=== PATIENT | male | born 1970 | race Caucasian/White ===

== ENCOUNTER → 2023-01-16 | Outpatient (CLI) | payer OTHER, SELFPAY ==
[2023-01-16 16:47] LABS: Absolute Lymphocyte Count 2.77 X10^3/uL (0.83-4.51); Absolute Neutrophil Count 1.7 X10^3/uL (2.0-7.7); Basophil# 0.09 X10^3/uL; Basophil% 1.8 % (0-1); Eosinophils% 3.9 % (0-5); Hematocrit 40.6 % (40-54); Hemoglobin 13.1 g/dL (13.0-16.5); Lymphocyte # 2.77 X10^3/ul (0.83-4.51); Lymphocyte % 54.1 % (19-41); Mean Corp Hgb Conc 32.3 g/dL (32-36); Mean Platelet Vol. 11.1 fl (6.2-12.0); Monocyte# 0.39 X10^3/uL; Monocyte% 7.6 % (0-10); NRBC Flagged by Analyzer 0 % (0-5); Neutrophil # 1.66 X10^3/uL (2.7-7.7); Neutrophil % 32.4 % (47-70); Platelet Count 378 K/mm3 (150-450); RBC Distribution Width CV 14.3 % (11.6-14.6); RBC Distribution Width SD 46.9 fl (35.1-43.9); Red Blood Count 4.51 M/mm3 (4.6-6.2); White Blood Count 5.1 K/mm3 (4.4-11.0)
[2023-01-16 17:10] LABS: ALB/GLOB Ratio 1.2 RATIO (0.9-2.4); AST(SGOT) 16 U/L (15-37); Alanine Aminotransfer ALT/SGPT 25 U/L (16-61); Albumin, Serum 3.9 g/dL (3.2-5.0); Alkaline Phosphatase 81 U/L (45-117); Anion Gap 5 (5-15); BUN 14 mg/dL (7-18); BUN/Creat Ratio 17.4 RATIO (10-20); Chloride 108 mmol/L (98-107); Cholesterol 160 mg/dL (200); EST Glomerular Filtration Rate 107 mL/min (>60); Est Glom Filt Rate - Afr Amer 130 mL/min (>60); Globulin 3.2 g/dL (2.2-4.2); Glucose 107 mg/dL (74-106); High Density Lipoprotein 70 mg/dL; Potassium 4.3 mmol/L (3.5-5.1); Protein, Total 7.1 g/dL (6.4-8.2); Sodium Level 141 mmol/L (136-145); Thyroid Stim Hormone (TSH) 1.18 uIU/mL (0.358-3.74); Triglycerides 137 mg/dL; Very Low Density Lipoprotein 27 mg/dL (5-40)
[2023-01-16 17:18] LABS: Microalbumin,Random Urine < 5.0 mg/L (NO RANGE EST.)
== END | disposition home or self-care (01) ==
PROVIDERS: PCP Nurse Practitioner Family; Referring Provider Nurse Practitioner Family; Visit Provider Nurse Practitioner Family
DX: E10.9 Type 1 diabetes mellitus without complications (principal); F32.A Depression, unspecified; E78.00 Pure hypercholesterolemia, unspecified; Z12.5 Encounter for screening for malignant neoplasm of prostate
CPT/HCPCS: 36415; 80053; 80061; 82043; 82570; 84153; 84443; 85025; G0103

== ENCOUNTER → 2023-05-30 | Outpatient (CLI) | payer OTHER, SELFPAY ==
[2023-05-30 16:53] LABS: Absolute Lymphocyte Count 2.02 X10^3/uL (0.83-4.51); Absolute Neutrophil Count 2.5 X10^3/uL (2.0-7.7); Basophil# 0.09 X10^3/uL; Basophil% 1.8 % (0-1); Eosinophil# 0.12 X10^3/uL; Eosinophils% 2.3 % (0-5); Hematocrit 38.9 % (40-54); Hemoglobin 12.5 g/dL (13.0-16.5); Lymphocyte # 2.02 X10^3/ul (0.83-4.51); Lymphocyte % 39.3 % (19-41); Mean Corp Hgb Conc 32.1 g/dL (32-36); Mean Corpuscular Hgb 29.1 pg (27.0-32.0); Mean Corpuscular Volume 90.5 fL (80-94); Mean Platelet Vol. 11.3 fl (6.2-12.0); Monocyte% 7.8 % (0-10); NRBC Flagged by Analyzer 0 % (0-5); Neutrophil # 2.49 X10^3/uL (2.7-7.7); Neutrophil % 48.4 % (47-70); Platelet Count 331 K/mm3 (150-450); RBC Distribution Width CV 14.3 % (11.6-14.6); RBC Distribution Width SD 47.8 fl (35.1-43.9); White Blood Count 5.1 K/mm3 (4.4-11.0)
[2023-05-30 17:15] LABS: Erythrocyte Sedimentation Rate 33 mm/hr (0-20)
[2023-05-30 17:52] LABS: Anion Gap 9 (5-15); BUN 21 mg/dL (7-18); Calcium,Total 8.6 mg/dL (8.5-10.1); Chloride 97 mmol/L (98-107); Creatinine, Serum 1.05 mg/dL (0.70-1.30); EST Glomerular Filtration Rate 79 mL/min (>60); Est Glom Filt Rate - Afr Amer 95 mL/min (>60); Glucose 584 mg/dL (74-106); Potassium 5.3 mmol/L (3.5-5.1); Sodium Level 129 mmol/L (136-145)
== END | disposition home or self-care (01) ==
LOC: BIMLAB 16:05
PROVIDERS: PCP Internal Medicine
DX: R51.9 Headache, unspecified (principal)
CPT/HCPCS: 36415; 80048; 85025; 85652

== ENCOUNTER → 2023-06-12 | Outpatient (CLI) | payer OTHER, SELFPAY ==
--- NOTE | 2023-06-12 16:15 | MRI_ITS ---
STUDY: MRI BRAIN WITH AND WITHOUT CONTRAST REASON FOR EXAM: Male, 53 years old. complex migraine THEN LOSS OF LEG MOVEMENT TECHNIQUE: Standardized multiplanar fat and water weighted pulse sequences were obtained. IV 15 cc clariscan was administered for the contrast portion of the examination. COMPARISON: None. FINDINGS: Normal size of the ventricles and extra-axial spaces for the patient''s age. Normal white matter tracts of the supratentorial brain. Normal bilateral basal ganglia. Normal thalami. There is no extra-axial fluid accumulation. Normal flow voids within the major intracranial circulation suggesting patency by spin echo criteria. Normal venous enhancement. There is no enhancing intra-axial or extra-axial abnormality. Normal sella turcica, pituitary gland, infundibular stalk, optic chiasm and hypothalamus. Normal tectal plate and pineal gland. Normal midbrain, rauhl and medulla. Normal cerebellum. Normal basal cisterns. Normal bilateral temporal bones. Normal bilateral internal auditory canals. No demonstrated orbital abnormality, within the constraints of a routine brain study. Mucosal thickening of maxillary sinuses bilaterally.. Normal calvarium and skull base. Normal visualized soft tissue structures. Normal visualized upper cervical spine. MRI/Brain W/WO Contrast IMPRESSION: Normal unenhanced and enhanced MRI of the brain. Bilateral maxillary sinus disease likely chronic Electronically Signed: Jorden Daniels MD at 20:38 EDT ,
--- NOTE | 2023-06-12 16:25 | RAD_ITS ---
EXAM: XR LUMBOSACRAL SPINE, 2 OR 3 VIEWS CLINICAL INDICATION: neuropathy, back pain TECHNIQUE: 3 views. COMPARISON: No relevant prior studies available. FINDINGS: VERTEBRAE: The usual lordotic curvature is well-maintained. There is minimal dextroscoliosis centered at L1-2 on the frontal view, this may be positional. Preserved vertebral body height. No fracture. No spondylolisthesis. No significant facet arthropathy. SACRUM/COCCYX: There are surgical clips projecting over the right lower lumbar spine and lumbosacral region. DISC SPACES: Mild disc space narrowing at L4-5 and L5-S1 on the left. GASTROINTESTINAL TRACT: Unremarkable as visualized. Included bowel gas pattern is non-obstructive. RAD/Lumbar Spine 2 or 3 Views IMPRESSION: Minimal scoliosis versus positioning. Minimal disc space narrowing. Electronically Signed: Brenda Quiros MD at 6:23 EDT ,
--- NOTE | 2023-06-12 16:25 | RAD_ITS ---
STUDY: X-RAY - ORBITS REASON FOR EXAM: Male, 53 years old. HX METAL TO EYES, PRE MRI TECHNIQUE: view(s) of the orbits were obtained. COMPARISON: None. FINDINGS: Normal bilateral orbits without a metallic orbital foreign body. Normal visualized facial bones. Normal paranasal sinuses. The soft tissue structures are unremarkable. RAD/Orbits for Foreign Body IMPRESSION: No demonstrated metallic orbital foreign body. The patient is cleared for an MRI examination. Electronically Signed: Jorden Daniels MD at 17:15 EDT ,
== END | disposition home or self-care (01) ==
LOC: MRI 16:06
PROVIDERS: PCP Internal Medicine; Referring Provider Internal Medicine; Visit Provider Internal Medicine
DX: R51.9 Headache, unspecified (principal); M79.2 Neuralgia and neuritis, unspecified; M54.50 Low back pain, unspecified; G89.29 Other chronic pain; J32.0 Chronic maxillary sinusitis
CPT/HCPCS: 70030; 70553; 72100; A9575

== ENCOUNTER 2023-06-19 09:00 | Outpatient (RCR) | payer OTHER, SELFPAY ==
--- NOTE | 2023-06-05 10:57 | HP.PTEVAL_ITS ---
Patient's Visit Information Visit Information Visit Information: CIARRA KENNEDY is a 53 year old M referred to Physical Therapy by Dr. Chio Dempsey MD with a diagnosis of Falls. Date of Evaluation: 06/04/23 Physical Therapist: Amy Perez DPT Visit Plan Frequency: 2x /Week Duration: 4 Weeks Plan: Aquatics- focus on LE and core strength/stabilization- proprioception *Need to get in water with patient for safety purposes Subjective Subjective: Patient comes with his today- type I diabetic- cane since March- on DM- polyneuropathy- has no feeling in his feet- cramps and shooting pains in his feet. Not sure PT can help but see if there is anything that we can do to see if we can help with the falling. He has fibro and narcolepsy and is a mess but they need to see if they can strengthen him- he has lost more weight over the last 2 years. Just started with endo A1C about 14 for a long time- and is now running 8.9-10. The pain is constant but he can deal with it- its the shooting pain that really bother him. The shooting pains are when he steps down wrong they come all the way up his legs- Worst: 10/10. The toes spasm and they can last up to 20 min- they want him to go to pain mgmt for methadone but they don't want to go that route- he is currently on the top dose of Neurontin. He staggers 15-20x an hours- he can fall up to 5-6x a day. If he stands up he doesn't have something to hold on to he will go down. He uses a cane 100% of the time. He does not want to use a walker. He can dress himself- he can bathe himself if he uses the shower chair- he can't sit for more than [address] They have no plans to do any sort of EMG testing due to his 100% loss. He does have feel pressure on the left heel with compression. They are planning to do an MRI for possible CVA- hemiplegic migraine- essential tremor- ER next time it happens- has had about 4 episodes since end of March- with fire works with sound/light. 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 Sleep: does not sleep well. He has not seen neurology or had an back x-rays or MRI. He reports that he feels better in the mornings-and when he sits down- when he is up and moving he is miserable and the pain is awful and he is more numb and tingling. PMHx/Meds: no changes since in chart. Objective Objective: Posture: FH, RS- can correct with verbal cues but does not maintain Gait: severely antalgic- uses a straight cane- he has a wide base of support and a slow johnny HR/TR: unable in sitting- but is able in sitting SLS: weight shift only Strength: Core: poor Left: hip flexion: 3+/5, Extn: 4/5 Abd: 4/5, Add: 4/5, IR/ER: 3+/5, Knee: Ext: 3+/5. Flex: 3+/5, Ankle: 4-/5 Right: hip flexion: 2/5, Extn: 2/5 Abd: 4/5, Add: 4/5, IR/ER: 3+/5, Knee: Ext: 2/5. Flex: 2/5, Ankle: 2/5 Balance/Special Test Scores Functional Gait Assessment Score: 2 % Disability: 93.3400 Lower Extremity Functional Score: 0 Goals Goal 1:: Patient will be I with HEP and progression Goal Time Frame: 4-6 Weeks Goal 2:: Patient will ambulate >300 feet with a normalized gait pattern and LRD Goal Time Frame: 4-6 Weeks Goal 3:: Patient will report no falls for 1 week Goal Time Frame: 4-6 Weeks Goal 4:: Patient will report 80% improvement Goal Time Frame: 4-6 Weeks Rehabilitation Potential Physical Therapy Diagnosis: Patient presents with hypomobility- he has decreased ROM, LE and core strength/stabilization, flex, proprioception and muscular endurance leading to poor posture, gait abnormality and decreased ability to perform ADL's safely. Rehabilitation Potential: Fair Anticipated Interventions Patient/Client Instruction: Educate patient on: Benefits of Fitness Program Therapeutic Exercise to Include: Strength training, Endurance training, Balance training, Coordination, Agility training, Body mechanics, Postural training, Flexibilty training, Gait and locomotor training, Neuromotor development, In an aquatic setting, Passive ROM, Active ROM, Dynamic Lumbar Stabilization and Scapular Strength/Stabilization For the Purpose of:: To improve muscle performance and motor function Text: Thank you for the opportunity to evaluate your patient. For Medicare and Medicare HMO plans, please review the plan of care and approve it. It will need to be FAXED BACK to us at [phone] for Medicare purposes. For Medicare only, by signing this I certify the plan of care. Please let me know if there are questions or concerns regarding this plan of care. Physician Signature: _Date:
--- NOTE | 2023-10-25 08:30 | HP.PT.NRP ---
Patient Information Patient Information: CIARRA KENNEDY was seen in my office for initial evaluation on 06/04/23. The following Plan of Care was established for this patient: POC Established Initial Frequency: 2x /Week Initial Duration: 4 Weeks Anticipated Interventions Patient/Client Instruction: Educate patient on: Benefits of Fitness Program Therapeutic Exercise to Include: Strength training, Endurance training, Balance training, Coordination, Agility training, Body mechanics, Postural training, Flexibilty training, Gait and locomotor training, Neuromotor development, In an aquatic setting, Passive ROM, Active ROM, Dynamic Lumbar Stabilization and Scapular Strength/Stabilization For the Purpose of:: To improve muscle performance and motor function Last Seen Last Seen: This patient was last seen in our office . Pertinent comments regarding their Physical therapy will appear below: Patient has not attended PT in over 8 weeks- appropriate to continue home exercise program- discharge from PT At this point I will be discontinuing this patient from physical therapy. I would be happy to see this patient again in the future if found appropriate by the physician. Thank you! Amy Perez, NEREIDAT Balance/Gait/Functional tests Balance/Special Test Scores Functional Gait Assessment Score: 2 % Disability: 93.3400 Lower Extremity Functional Score: 0
== END 2023-06-19 19:00 | disposition home or self-care (01) ==
LOC: PT 09:00
PROVIDERS: PCP Nurse Practitioner Family; Referring Provider Internal Medicine; Visit Provider Internal Medicine
DX: E10.42 Type 1 diabetes mellitus with diabetic polyneuropathy (principal); R29.6 Repeated falls
CPT/HCPCS: 97113; 97162

== ENCOUNTER → 2023-07-06 | Outpatient (CLI) | payer OTHER, SELFPAY ==
[2023-07-06 16:51] LABS: Erythrocyte Sedimentation Rate 26 mm/hr (0-20)
[2023-07-06 16:54] LABS: Prothrombin Time (Protime)PT. 12.7 SECONDS (11.7-14.9)
[2023-07-06 17:02] LABS: Lactic Acid 0.9 mmol/L (0.4-1.9)
[2023-07-06 17:07] LABS: Vitamin B12 472 pg/mL (211-911); Vitamin D,25 Hydroxy 34.5 ng/mL
[2023-07-06 17:19] LABS: ALB/GLOB Ratio 1.1 RATIO (0.9-2.4); AST(SGOT) 15 U/L (15-37); Alanine Aminotransfer ALT/SGPT 16 U/L (16-61); Albumin, Serum 3.7 g/dL (3.2-5.0); Alkaline Phosphatase 116 U/L (45-117); Amylase 51 U/L (25-115); Anion Gap 5 (5-15); BUN 13 mg/dL (7-18); BUN/Creat Ratio 16.2 RATIO (10-20); CPK Total, Creatine Kinase 177 U/L (39-308); CRP < 2.90 mg/L (0.0-3.0); Calcium,Total 9.1 mg/dL (8.5-10.1); Chloride 104 mmol/L (98-107); EST Glomerular Filtration Rate 107 mL/min (>60); Est Glom Filt Rate - Afr Amer 130 mL/min (>60); Globulin 3.5 g/dL (2.2-4.2); Glucose 288 mg/dL (74-106); Lipase 32 U/L (13-75); Potassium 4.1 mmol/L (3.5-5.1); Protein, Total 7.2 g/dL (6.4-8.2); Sodium Level 134 mmol/L (136-145)
[2023-07-10 14:08] LABS: Anti-Centromere B Ab <0.2 AI (0.0-0.9); Anti-Chromatin <0.2 AI (0.0-0.9); Anti-Jo <0.2 AI (0.0-0.9); Anti-Scleroderma-70 AB <0.2 AI (0.0-0.9); Anti-dsDNA Ab 1 IU/mL (0-9); RNP Ab <0.2 AI (0.0-0.9); SJOGREN'S Anti-SS-A test < 0.2 AI (0.0-0.9); SJOGREN'S Anti-SS-B test < 0.2 AI (0.0-0.9); Smith Ab <0.2 AI (0.0-0.9); Vitamin D 1,25-Dihydroxy 58.6 pg/mL (24.8-81.5)
[2023-07-12 02:07] LABS: Albumin 3.5 g/dL (2.9-4.4); Alpha-1-Globulins 0.2 g/dL (0.0-0.4); Alpha-2-Globulins 0.9 g/dL (0.4-1.0); Angiotensin Convert Enzyme 79 U/L (14-82); Cytoplasmic Ab (C-ANCA) <1:20 titer (Neg:<1:20); Endomysial Antibody IgA Positive (Negative); Gamma Globulin 0.6 g/dL (0.4-1.8); Gastrin, Serum 55 pg/mL (0-115); Immunoglobulin A 140 mg/dL (90-386); Immunoglobulin E 6 IU/mL (6-495); Immunoglobulin G 634 mg/dL (603-1613); Immunoglobulin M 80 mg/dL (20-172); PROEL- TOTAL PROTEIN 6.3 g/dL (6.0-8.5); Perinuclear Ab (P-ANCA) <1:20 titer (Neg:<1:20); t-Transglutaminase IgA <2 U/mL (0-3)
== END | disposition home or self-care (01) ==
PROVIDERS: PCP Internal Medicine; Referring Provider Internal Medicine Gastroenterology; Visit Provider Internal Medicine Gastroenterology
DX: K90.0 Celiac disease (principal)
CPT/HCPCS: 36415; 80053; 82150; 82164; 82306; 82533; 82550; 82607; 82652; 82746; 82784; 82785; 82941; 83516; 83605; 83690; 84165; 85610; 85652; 86140; 86225; 86235; 86255; 86256; 86334

== ENCOUNTER 2023-08-11 15:38 | Emergency (ER) | payer OTHER, SELFPAY ==
[2023-08-11 15:41] VITALS: BP 111/59; PULSE 96; RESP 22; TEMP 36.4; O2SAT 97; BMI 21.2
--- NOTE | 2023-08-11 15:59 | EKG12_ITS ---
Test Reason : SOB Blood Pressure : / mmHG Vent. Rate : 085 BPM Atrial Rate : 085 BPM P-R Int : 124 ms QRS Dur : 078 ms QT Int : 362 ms P-R-T Axes : 070 088 073 degrees QTc Int : 430 ms Normal sinus rhythm Possible Left atrial enlargement Septal infarct , age undetermined Abnormal ECG Confirmed by JONAS SINGLETARY, TERRANCE ([id number]), scientific publications editor ALLYSSA MCDONALD ([id number]) on 08/13/2023 2:27:47 PM Referred By: Confirmed By:TERRANCE MCDANIEL MD
--- NOTE | 2023-08-11 16:04 | NURSING ---
NO OLD EKGS
[2023-08-11 16:09] VITALS: BP 99/71; PULSE 85; RESP 22; O2SAT 94; O2SAT 95
[2023-08-11] MEDS: 0.9% Normal Saline (1000mL) 1,000 ML 1000 ML IV ×2 (16:09→17:08)
--- NOTE | 2023-08-11 16:15 | RAD_ITS ---
STUDY: X-RAY CHEST REASON FOR EXAM: Male, 53 years old. chest pain TECHNIQUE: Single AP portable view of the chest. COMPARISON: None. FINDINGS: The lungs are clear and expanded. There is no demonstrated pleural abnormality. Normal size heart. Normal mediastinum and waldemar. Normal visualized pulmonary arteries. Normal visualized aortic arch and descending thoracic aorta. Normal visualized thoracic spine. Normal visualized ribs, clavicles, and shoulders. There is no demonstrated abnormality of the visualized soft tissue structures of the upper abdomen. RAD/Chest 1 View (Portable) IMPRESSION: Normal x-ray examination of the chest for age. Electronically Signed: Shi Mandujano MD at 16:46 EDT ,
[2023-08-11 16:18] LABS: Absolute Neutrophil Count 2.7 X10^3/uL (2.0-7.7); Basophil# 0.11 X10^3/uL; Eosinophil# 0.09 X10^3/uL; Eosinophils% 1.6 % (0-5); Hematocrit 42.9 % (40-54); Lymphocyte % 41.1 % (19-41); Mean Corp Hgb Conc 32.6 g/dL (32-36); Mean Corpuscular Hgb 29.8 pg (27.0-32.0); Mean Corpuscular Volume 91.3 fL (80-94); Mean Platelet Vol. 10.9 fl (6.2-12.0); Monocyte# 0.41 X10^3/uL; Monocyte% 7.3 % (0-10); NRBC Flagged by Analyzer 0 % (0-5); Neutrophil # 2.67 X10^3/uL (2.7-7.7); Neutrophil % 47.6 % (47-70); Platelet Count 396 K/mm3 (150-450); RBC Distribution Width CV 13.3 % (11.6-14.6); RBC Distribution Width SD 45.1 fl (35.1-43.9); White Blood Count 5.6 K/mm3 (4.4-11.0)
[2023-08-11 16:23] LABS: Bedside Glucose 452 mg/dL (74-106)
[2023-08-11 16:39] LABS: Anion Gap 11 (5-15); BNP,B-Type NATRIURETIC PEPTIDE 83.1 pg/mL (0-100); BUN 23 mg/dL (7-18); BUN/Creat Ratio 22.5 RATIO (10-20); Calcium,Total 9.2 mg/dL (8.5-10.1); Chloride 98 mmol/L (98-107); Creatinine, Serum 1.02 mg/dL (0.70-1.30); EST Glomerular Filtration Rate 81 mL/min (>60); Est Glom Filt Rate - Afr Amer 98 mL/min (>60); Estimated Creatinine Clearance 75.82 ml/min; Glucose 477 mg/dL (74-106); Potassium 4.6 mmol/L (3.5-5.1); Sodium Level 130 mmol/L (136-145); Troponin-I HS 4 pg/mL (3.0-78.0)
--- NOTE | 2023-08-11 16:58 | ED.VIS.DYS ---
HPI History of Present Illness Chief Complaint: Shortness of Breath Narrative Narrative: 83-year-old male presenting with cough and shortness of breath generalized fatigue for about 2 weeks. His significant other had COVID initially in June about the and he developed an illness after this and has been ill since then spent the last couple weeks. She has been tested for COVID twice and was negative. He does not have any chest pain but he does feel like he is short of breath. He is a active smoker. He is a type I diabetic with blood sugars reading high all day. His significant other states that she has been given an insulin to keep his blood sugars under control. No polyuria or polydipsia. Patient does see Dr. Romaine Rogers for his diabetes. He also sees Dr. Domínguez for recent diagnosis of celiac disease. Patient states that he is currently out of work due to neuropathy secondary to diabetes and is trying to get long-term disability. She does have a cough. He has not had fevers or chills but his significant other states has been swelling to his close today. [facility] Medical History Arthritis Celiac disease Charcot foot due to diabetes mellitus Colon polyps Depression Diabetic polyneuropathy associated with type 1 diabetes mellitus Erectile dysfunction Essential and other specified forms of tremor Fibromyalgia H. pylori infection High cholesterol Insomnia Narcolepsy Type 1 diabetes Home Medications aspirin 81 mg tablet,delayed release (Adult Aspirin Regimen) 81 mg PO DAILY 12/08/22 [History Last Taken Unknown] coq10 PO 1XD 12/08/22 [History Last Taken Unknown] insulin lispro 100 unit/mL subcutaneous half-unit pen (Humalog Romero Karan (U-100)) 1 sliding scale dose subcut USEASDIRECTD 12/08/22 [History Last Taken Unknown] multivitamin 1 tab PO DAILY 12/08/22 [History Last Taken Unknown] omega 3 PO 1XD 12/08/22 [History Last Taken Unknown] super b complex PO 1XD 12/08/22 [History Last Taken Unknown] blood-glucose sensor (FreeStyle Rakesh 3 Sensor device) #2 ea 12/28/22 [Rx Last Taken Unknown] cbd oil 500 ml sublingual 2XD PRN 01/04/23 [History Last Taken Unknown] gemfibrozil 600 mg tablet 600 mg PO DAILY #90 tabs 01/22/23 [Rx Last Taken Unknown] lisinopril 2.5 mg tablet 2.5 mg PO DAILY #90 tabs 01/22/23 [Rx Last Taken Unknown] pravastatin 20 mg tablet 20 mg PO QHS #90 tabs 01/22/23 [Rx Last Taken Unknown] glucagon 3 mg/actuation nasal spray (Baqsimi) 3 mg intranasal ONCE PRN 02/27/23 [History Last Taken Unknown] insulin pump cartridge,automated dose,BT with controller subcutaneous (Omnipod 5 G6 Intro Kit (Gen 5) subcutaneous cartridge with controller) #1 ea 04/13/23 [Rx Last Taken Unknown] XZOJ-RRBW-ATUK-CLON-LIDO topical TID PRN FOOT PAIN 04/17/23 [History Last Taken Unknown] sildenafil (pulm.hypertension) 20 mg tablet 20 mg PO DAILY PRN 04/17/23 [History Last Taken Unknown] sertraline 50 mg tablet See Rx Instructions .Route .COMPLEX #30 tabs 05/28/23 [Rx Last Taken Unknown] insulin degludec 200 unit/mL (3 mL) subcutaneous pen (Tresiba FlexTouch U-200 insulin) 10 unit subcut DAILY 05/30/23 [History Last Taken Unknown] sumatriptan succinate 25 mg tablet (Imitrex) See Rx Instructions PO .COMPLEX #7 tabs 05/30/23 [Rx Last Taken Unknown] amitriptyline 25 mg tablet 25 mg PO DAILY #1 TAB 06/20/23 [Rx Last Taken Unknown] propranolol 10 mg tablet 10 mg PO BID #60 tabs 07/11/23 [Rx Last Taken Unknown] insulin lispro 100 unit/mL subcutaneous solution (Humalog U-100 Insulin) 50 unit (0.5 mL) subcut DAILY #50 mL 08/10/23 [Rx Last Taken Unknown] pregabalin 100 mg capsule (Lyrica) 100 mg PO TID 08/10/23 [History Last Taken Unknown] albuterol sulfate 90 mcg/actuation breath activated powder inhaler,sensor 2 inh inhalation Q6H #1 ea 08/11/23 [Rx Last Taken Unknown] Allergy/AdvReac Type Severity Reaction Status Date / Time duloxetine [From Cymbalta] AdvReac Mild Other Verified 08/11/23 15:40 Family History Sister Breast cancer Mother Colon cancer High cholesterol CVA (cerebral vascular accident) Cancer non-hodgkins lymphoma Grandmother Diabetes CVA (cerebral vascular accident) Brother CVA (cerebral vascular accident) Father Cancer lung cancer Son Essential tremor Sister Essential tremor Surgical History Abnormal colonoscopy H/O vasectomy History of appendectomy History of cholecystectomy History of esophagogastroduodenoscopy (EGD) Social History household members: spouse current occupational status: employed current occupation: maintenance at a [employer] Smoking Status: Current every day smoker tobacco type: cigarettes and cigars alcohol intake: current alcohol intake frequency: holidays/special occasions only substance use type: does not use what type of physical activity do you participate in: none do you feel safe at home: Yes ROS ROS ED Constitutional Constitutional ED: Reports sweats; Denies chills or fever(s) Eyes Eyes: Denies blurry vision or change in vision ENT ENT ED: Denies ear pain or sore throat Cardiovascular Cardiovascular: Denies chest pain, palpitations or racing heartbeat Respiratory/Chest Respiratory/Chest: Reports cough and dyspnea; Denies sputum Gastrointestinal Gastrointestinal: Denies abdominal pain, constipation, diarrhea, nausea or vomiting Genitourinary Genitourinary ED: Denies dysuria, hematuria or urinary frequency Musculoskeletal Musculoskeletal: Reports myalgias; Denies arthralgias or neck pain Integumentary Denies abscess, Abrasions or rash Neurologic Neurologic: Denies headache(s), paresthesias or weakness Psychiatric Psychiatric: Denies anxiety, depression, suicidal ideation or suicidal thoughts Endocrine Endocrinology: Denies polydipsia or polyuria EXAM Physical Exam Const Vital Signs: 08/11/23 15:41 08/11/23 16:09 08/11/23 16:09 Temperature 97.5 F L Temperature Source Temporal Pulse Rate 96 85 Respiratory Rate 22 H 22 H Respiratory Effort Respiratory Pattern Blood Pressure 111/59 L 99/71 Blood Pressure Mean 76 80 Pulse Ox 97 94 Oxygen Delivery Method Room Air Room Air Room Air 08/11/23 16:09 08/11/23 17:19 08/11/23 17:19 Temperature Temperature Source Pulse Rate 80 Respiratory Rate 16 Respiratory Effort Short of Breath Accessory Muscle Use Respiratory Pattern Kussmaul Normal Blood Pressure Blood Pressure Mean Pulse Ox 95 Oxygen Delivery Method Room Air Room Air 08/11/23 19:28 Temperature Temperature Source Pulse Rate 96 Respiratory Rate 16 Respiratory Effort Respiratory Pattern Blood Pressure 111/61 Blood Pressure Mean 77 Pulse Ox 96 Oxygen Delivery Method Room Air Positive well nourished General Appearance ED: Negative for pallor HEENT Reports moist mucous membranes HEENT Narrative: Oropharynx is pink and moist. No erythema or edema. No exudates. Tongue not swollen. No sublingual edema. Dentition are normal. No lymphadenopathy. atraumatic Eyes PERRL and EOMs intact bilaterally Neck no lymphadenopathy, supple and no meningeal signs Resp normal respiratory effort Auscultation: wheezes scattered wheezes Cardio regular rate and regular rhythm GI non-tender Extremity normal to inspection Neuro oriented x3 and CN's II-XII intact bilaterally Sensorium / Orientation: alert Psych mental status grossly normal Skin no wounds General Skin Exam: Negative for jaundice or pallor MDM MDM MDM Narrative Medical decision making narrative: Presenting with fatigue, cough, shortness of breath from was 2 weeks. Differential includes pneumonia, viral syndrome, DKA, hyperglycemia, dehydration, electrolyte normalities, anemia, pneumonia, ACS. CBC will be obtained to assess white blood cell count, hemoglobin, platelets. BMP to assess renal function electrolytes as well as glucose and anion gap. High-sensitivity troponin and EKG obtained to assess for ischemia and dysrhythmia. BNP to assess for CHF. CBC shows normal white blood cell count of 5.6. Hemoglobin 14. Platelets 396. Renal function within normal limits. Slightly dehydrated prerenal azotemia. Glucose 477 on lab work. Patient was given 2 L of fluid and repeat blood sugar was in the 500s. High-sensitivity opponent is 4. BNP 83.1. Patient was given 15 units of insulin and his blood sugar came down. At this point they feel comfortable managing the blood sugar. His states that they are getting an insulin pump this next week which will help maintain his blood sugars. He did feel better symptomatically with a breathing treatment so I did give him albuterol inhaler at home. We are going to avoid steroids due to hyperglycemia. He does not appear to have an anion gap or signs of DKA. Chest x-ray on my interpretation shows no acute process. The radiologist interprets this and agrees. At this point I feel the patient can be treated at home. He is to watch his blood sugars. Return precautions were discussed. Impression: 1. Acute bronchitis 2. Hyperglycemia Lab Data Attestation: I reviewed the patient's lab results. Labs: Laboratory Results - last 24 hr 08/11/23 08/11/23 08/11/23 16:04 16:05 18:38 WBC 5.6 RBC 4.70 Hgb 14.0 Hct 42.9 MCV 91.3 MCH 29.8 MCHC 32.6 RDW Std Deviation 45.1 H RDW Coeff of Becky 13.3 Plt Count 396 MPV 10.9 Immature Gran % (Auto) 0.400 Neut % (Auto) 47.6 Lymph % (Auto) 41.1 H Hockley % (Auto) 7.3 Eos % (Auto) 1.6 Baso % (Auto) 2.0 H Absolute Neuts (auto) 2.7 Absolute Lymphs (auto) 2.30 Nucleated RBC % 0 Sodium 130 L Potassium 4.6 Chloride 98 Carbon Dioxide 21.0 Anion Gap 11 BUN 23 H Creatinine 1.02 Estim Creat Clear Calc 75.82 Est GFR (MDRD) Af Amer 98 Est GFR (MDRD) Non-Af 81 BUN/Creatinine Ratio 22.5 H Glucose 477 H* Calcium 9.2 Troponin I High Sens 4 B-Natriuretic Peptide 83.1 POC Glucose 452 H* > 500 H* 08/11/23 19:59 WBC RBC Hgb Hct MCV MCH MCHC RDW Std Deviation RDW Coeff of Becky Plt Count MPV Immature Gran % (Auto) Neut % (Auto) Lymph % (Auto) Hockley % (Auto) Eos % (Auto) Baso % (Auto) Absolute Neuts (auto) Absolute Lymphs (auto) Nucleated RBC % Sodium Potassium Chloride Carbon Dioxide Anion Gap BUN Creatinine Estim Creat Clear Calc Est GFR (MDRD) Af Amer Est GFR (MDRD) Non-Af BUN/Creatinine Ratio Glucose Calcium Troponin I High Sens B-Natriuretic Peptide POC Glucose 426 H Radiography Diagnostic Testing: Clinical Impression(s) from Imaging Studies Chest X-Ray 08/11/23 16:15 IMPRESSION: Normal x-ray examination of the chest for age. Electronically Signed: Shi Mandujano MD at 16:46 EDT , Discharge Plan Triage Chief Complaint: Shortness of Breath ED Provider: Phil Zhao Dx/Rx/DC Orders Instructions: ED Bronchitis with Wheezing (Adult), ED Diabetic Hyperglycemia Prescriptions: New albuterol sulfate 90 mcg/actuation aero powdr breath act w/sensor 2 inh inhalation Q6H Qty: 1 0RF No Action insulin lispro [Humalog Romero KwikPen U-100] 100 unit/mL insulin pen, half-unit 1 sliding scale dose subcut USEASDIRECTD Patient Comments: start at 200 with 1 unit and every 100 add 1 unit multivitamin Tablet 1 tab PO DAILY aspirin [Adult Aspirin Regimen] 81 mg tablet,delayed release (DR/EC) 81 mg PO DAILY coq10 PO 1XD Rx Instructions: 100mg super b complex PO 1XD omega 3 PO 1XD Rx Instructions: 500mg cbd oil 500 ml sublingual 2XD PRN (DME) Omnipod 5 G6 Intro Kit (Gen 5) Cartridge See Rx Instructions .Route Qty: 1 0RF Rx Instructions: As directed Baqsimi 3 mg/actuation spray,non-aerosol 3 mg intranasal ONCE PRN Rx Instructions: as a single dose insulin degludec [Tresiba FlexTouch U-200] 200 unit/mL (3 mL) insulin pen 10 unit subcut DAILY sumatriptan succinate [Imitrex] 25 mg tablet See Rx Instructions PO .COMPLEX Qty: 7 0RF Rx Instructions: take 1 tab at onset of headache; if no relief may repeat 1 tab after at least 2 hrs; max = 4 tabs/24 hr PO sildenafil (pulm.hypertension) 20 mg tablet 20 mg PO DAILY PRN Rx Instructions: take 30-60 min prior to sexual intercourse BUDC-IBPR-UUHX-CLON-LIDO gel topical TID PRN (Reason: FOOT PAIN) (DME) FreeStyle Rakesh 3 Sensor Device See Rx Instructions .Route Qty: 2 12RF Rx Instructions: As directed gemfibrozil 600 mg tablet 600 mg PO DAILY Qty: 90 3RF lisinopril 2.5 mg tablet 2.5 mg PO DAILY Qty: 90 3RF pravastatin 20 mg tablet 20 mg PO QHS Qty: 90 3RF sertraline 50 mg tablet See Rx Instructions .ROUTE .COMPLEX Qty: 30 2RF Dose Instruction: TAKE 1 TABLET BY MOUTH EVERY DAY Rx Instructions: TAKE 1 TABLET BY MOUTH EVERY DAY amitriptyline 25 mg tablet 25 mg PO DAILY Qty: 1 0RF propranolol 10 mg tablet 10 mg PO BID Qty: 60 3RF insulin lispro [Humalog U-100 Insulin] 100 unit/mL solution 50 unit subcut DAILY Qty: 50 3RF Rx Instructions: via insulin pump pregabalin [Lyrica] 100 mg capsule 100 mg PO TID Primary Care Provider: Chio Dempsey Referrals: Chio Dempsey MD [Primary Care Provider] - Disposition Disposition: Home, Self Care
[2023-08-11] MEDS: Ipratropium/Albuterol Sulfate 3 ML AMPUL.NEB INHALATION (17:16)
[2023-08-11] MEDS: Albuterol 2.5 MG/3 ML VIAL.NEB. INHALATION (17:16)
[2023-08-11 17:19] VITALS: PULSE 80; RESP 16; O2SAT 95
[2023-08-11 18:55] LABS: Bedside Glucose > 500 mg/dL (74-106)
[2023-08-11] MEDS: Insulin Lispro 100 UNIT/ML INSULN.PEN 15 UNIT SC (19:18)
[2023-08-11 19:28] VITALS: BP 111/61; PULSE 96; RESP 16; O2SAT 96
[2023-08-11 20:17] LABS: Bedside Glucose 426 mg/dL (74-106)
[2023-08-11 20:39] VITALS: BP 122/65; PULSE 93; O2SAT 96
== END 2023-08-11 20:49 | disposition home or self-care (01) ==
PROVIDERS: Emergency Provider Student in an Organized Health Care Education/Training Program; PCP Internal Medicine; Visit Provider Student in an Organized Health Care Education/Training Program
DX: J20.9 Acute bronchitis, unspecified (principal); E10.42 Type 1 diabetes mellitus with diabetic polyneuropathy; E10.65 Type 1 diabetes mellitus with hyperglycemia; K90.0 Celiac disease; E78.00 Pure hypercholesterolemia, unspecified; F17.210 Nicotine dependence, cigarettes, uncomplicated
CPT/HCPCS: 71045; 80048; 82962; 83880; 84484; 85025; 93005; 94640; 96360; 96361; 99283; J7030

== ENCOUNTER → 2023-09-17 | Outpatient (CLI) | payer OTHER, SELFPAY ==
[2023-09-21 16:08] LABS: Fats, Neutral Normal (.); Fats, Total Normal (.)
[2023-09-26 14:09] LABS: Pancreatic Elastase, Fecal 238 (>200)
== END | disposition home or self-care (01) ==
PROVIDERS: PCP Internal Medicine; Referring Provider Internal Medicine Gastroenterology; Visit Provider Internal Medicine Gastroenterology
DX: K90.0 Celiac disease (principal)
CPT/HCPCS: 36415; 82653; 82705

== ENCOUNTER → 2024-04-21 | Outpatient (CLI) | payer BC, SELFPAY ==
[2024-04-21 15:31] LABS: Absolute Lymphocyte Count 2.29 X10^3/uL (0.83-4.51); Absolute Neutrophil Count 1.6 X10^3/uL (2.0-7.7); Basophil% 2.2 % (0-1); Eosinophil# 0.13 X10^3/uL; Eosinophils% 2.9 % (0-5); Hematocrit 42.6 % (40-54); Hemoglobin 13.4 g/dL (13.0-16.5); Lymphocyte # 2.29 X10^3/ul (0.83-4.51); Lymphocyte % 51.2 % (19-41); Mean Corp Hgb Conc 31.5 g/dL (32-36); Mean Corpuscular Hgb 28.6 pg (27.0-32.0); Mean Corpuscular Volume 90.8 fL (80-94); Mean Platelet Vol. 11.3 fl (6.2-12.0); Monocyte# 0.32 X10^3/uL; Monocyte% 7.2 % (0-10); NRBC Flagged by Analyzer 0 % (0-5); Neutrophil # 1.62 X10^3/uL (2.7-7.7); Neutrophil % 36.3 % (47-70); Platelet Count 352 K/mm3 (150-450); RBC Distribution Width CV 15.5 % (11.6-14.6); RBC Distribution Width SD 51.5 fl (35.1-43.9); Red Blood Count 4.69 M/mm3 (4.6-6.2); White Blood Count 4.5 K/mm3 (4.4-11.0)
[2024-04-21 16:40] LABS: Hemoglobin A1c 7.3 % (3.8-5.6)
[2024-04-21 16:54] LABS: ALB/GLOB Ratio 1.1 RATIO (0.9-2.4); AST(SGOT) 19 U/L (15-37); Alanine Aminotransfer ALT/SGPT 19 U/L (16-61); Albumin, Serum 3.5 g/dL (3.2-5.0); Alkaline Phosphatase 74 U/L (45-117); Anion Gap 5 (5-15); BUN 13 mg/dL (7-18); Calcium,Total 8.9 mg/dL (8.5-10.1); Chloride 109 mmol/L (98-107); Cholesterol 125 mg/dL (200); Creatinine, Serum 0.76 mg/dL (0.70-1.30); EST Glomerular Filtration Rate 113 mL/min (>60); Est Glom Filt Rate - Afr Amer 137 mL/min (>60); Ferritin 20 ng/mL (26-388); Globulin 3.2 g/dL (2.2-4.2); Glucose 115 mg/dL (74-106); High Density Lipoprotein 59 mg/dL; Iron 67 ug/dL (65-175); Iron Binding Capacity,Total 386 ug/dL (250-450); PERCENT IRON SATURATION 17.4 % (15.0-55.0); Potassium 5.1 mmol/L (3.5-5.1); Protein, Total 6.7 g/dL (6.4-8.2); Sodium Level 141 mmol/L (136-145); Triglycerides 48 mg/dL; Very Low Density Lipoprotein 10 mg/dL (5-40); Vitamin D,25 Hydroxy 36.1 ng/mL
[2024-04-21 17:02] LABS: Microalbumin,Random Urine < 5.0 mg/L (NO RANGE EST.)
== END | disposition home or self-care (01) ==
LOC: BIMLAB 12:05
PROVIDERS: PCP Internal Medicine; Visit Provider Internal Medicine
DX: E10.42 Type 1 diabetes mellitus with diabetic polyneuropathy (principal); K90.0 Celiac disease; G89.29 Other chronic pain
CPT/HCPCS: 36415; 80053; 80061; 82043; 82306; 82570; 82728; 83036; 83540; 83550; 85025

== ENCOUNTER → 2024-05-09 | Outpatient (CLI) | payer BC, SELFPAY ==
--- NOTE | 2024-05-09 16:24 | ST.MBS ---
Modified Barium Swallow Patient Information Study Date: 05/09/24 Study Time: 12:45 Direct Billable Minutes: 94 Total Minutes procedure & reportin Diagnosis: Dysphagia R13.10 Referring Physician: Chio Dempsey Reason for Referral: Objectively assess swallow function, assess risk for aspiration, and determine recommendations for least restrictive diet textures and compensatory strategies to improve safety of swallow. Medical History: PMH: Charcot foot due to diabetes mellitus, Diabetic polyneuropathy associated with type 1 diabetes mellitus, Celiac disease, Essential and other specified forms of tremor, Colon polyps s/p EGD ~ 2 years prior, Insomnia, Arthritis, H. pylori infection, Fibromyalgia, High cholesterol, Depression, Narcolepsy (See EMR for full PMH). The patient reports sensation of lump in his throat for the past 4-5 months. He feels like he gets food/drink caught in his throat consistently. It does not matter what food texture he eats, he has difficulty with all food/drink. He required the Heimlich 1X when he couldn't get coffee to go down or come up. He does follow with Dr. Domínguez, golf ball trimmer, for his Celiacs and hx of colon polyps. He has upper and GI endoscopy every 3 years. He was referred for MBSS by PCP to address current swallowing difficulty. , Brandon, present for MBSS. Current Diet Ordered: Regular textures / Thin liquids Dentition: Natural Teeth and Missing Teeth Mental Status: WNL Respiratory Status: Oxygenating on Room Air Penetration-Aspiration Scale Penetration-Aspiration Scale: OBJECTIVE ASSESSMENT OF SWALLOW FUNCTION (QUANTITATIVE ? PER TRIAL): PENETRATION / ASPIRATION SCALE ([place]): 1 = does not enter airway 2 = enters airway/above vocal folds/ejected 3 = enters airway/above vocal folds/not ejected 4 = enters airway/contacts vocal folds/ejected 5 = enters airway/contacts vocal folds/not ejected 6 = enters airway/below vocal folds/ejected 7 = enters airway/below vocal folds/not ejected despite effort 8 = enters airway/below vocal folds/no effort VIDEOFLOROSCOPIC SCALE SCORE ([place]): Grade I = aspiration of material that has penetrated into the laryngeal vestibule, intact cough reflex Grade II = aspiration < 10 % of the bolus, intact cough reflex Grade III = aspiration of < 10 % of the bolus, reduced cough reflex or aspiration of > 10 % of the bolus, intact cough reflex Grade IV = aspiration of > 10 % of the bolus, reduced cough reflex Penetration-Aspiration Scale Score Thin Liquid via teaspoon: Result: 1= does not enter airway Thin Liquid via teaspoon Trial 2: Result: 2= enter airway/above vocal folds/ejected Thin Liquid via large single sip: cup: Result: 3= enters airways/above vocal folds/not ejected Thin Liquid via sequential sips: cup: Result: 2= enter airway/above vocal folds/ejected Comment: Esophageal screen - Retrograde flow through the LES to the lower esophagus. [place] Thick Liquid via large single sip: cup: Result: 2= enter airway/above vocal folds/ejected Pudding via teaspoon: Result: 1= does not enter airway Comment: Esophageal screen - Mild retention in the mid-upper esophagus. 1/2 Cookie (GF Oreo w/ Barium Pudding Coating): Result: 1= does not enter airway Comment: Esophageal screen - Retention throughout the esophagus. After trial, patient sensed the cookie was caught in his throat when only trace residues remained in the pharynx. Pt likely sensing cookie retention throughout his esophagus. Thin Liquid via single sip: straw: Result: 2= enter airway/above vocal folds/ejected Comment: Esophageal screen - 2 thin liquid washes mostly cleared cookie residues from the esophagus; however, mild retention remained in the mid esophagus. Thin Liquid via small single sip: cup Effortful swallow: Result: 2= enter airway/above vocal folds/ejected Oral Phase Labial Seal: No Labial Escape Tongue Control During Bolus Hold: Posterior escape of greater than half of bolus Bolus Preparation/Mastication: Timely and efficient chewing and mashing Bolus Transport/Lingual Motion: Delayed initiation of tongue motion Oral Residue: Trace residue lining oral structures Pharyngeal Phase Initiation of Pharyngeal Swallow: Bolus head in pyriforms Soft Palate Elevation: Trace column of contrast/air between soft palate and pharyngeal wall Laryngeal Elevation: Comp. Superior move thyroid cart w/comp. apprx arytenoid cart-epig pet Anterior Hyoid Excursion: Partial anterior movement Epiglottic Movement: No inversion (inconsistent) Laryngeal Vestibule Closure at Height of Swallow: Incomplete; narrow column of air/contrast in laryngeal vestibule Pharyngeal Stripping Wave: Present - diminished Pharyngoesophageal Segment Opening: Parital distension and partial duration; parital obstruction of flow Tongue Base Retraction: Wide column of contrast between tongue base & post. pharyngeal wall Pharyngeal Residue: Collection of residue within or on pharyngeal structures Esophageal Phase Esophageal Clearance: Esophageal retention w/ retrograde flow below pharyngoesophageal seg. Treatment Strategies Effects of treatment strategies attemped:: Effortful = Effective. Multiple Swallows = Effective. Alternate bites/sips = Mostly effective. Diagnosis/Impression Diagnosis: Mild-moderate pharyngoesophageal dysphagia R13.14 Impression: The oral phase is grossly WNL. Posterior loss and delayed tongue motion for A-P transport with large sips of thin liquids. Timely and complete mastication. Good oral clearance. The pharyngeal phase is primarily marked by... -Decreased tongue base retraction, pharyngeal stripping wave, and UES opening/duration resulting in mild-moderate pharyngeal residues after the swallow. He independently utilized multiple swallows to adequately clear pharyngeal residues. -Decreased airway closure during the swallow due to decreased laryngeal elevation and inconsistent epiglottic inversion. Decreased bolus size and effortful swallow decreased risk for aspiration with thin liquids. -Consistent laryngeal penetration of thin and mildly thick liquids. On most trials, the laryngeal penetration fully ejected after independent use of multiple swallows. On one large sip of thin liquids, the penetrated barium did not fully eject from the laryngeal vestibule. No aspiration was observed during the study. The esophageal phase is primarily marked by... -Retrograde flow of thin liquids through the LES to the lower esophagus. -Mild retention of pudding in mid esophagus. -Retention of cookie throughout the esophagus, which mostly cleared after two thin liquid washes. Recommendations Diet: Regular Textures and Thin Liquids Comment: IF SENSATION OF RETENTION DESPITE USE OF STRATEGIES, STOP ORAL INTAKE AND RESUME AT A LATER TIME. Compensatory Strategies: Small Bites, Small Sips (Effortful swallows), Slow Rate, Multiple Swallows (Pt already completes independently as needed to clear pharyngeal residue), Alternate bites/solids and sips/liquids (1-2 sips after each bite), Sitting upright and Remain sitting upright for 30 minutes after PO intake Recommend Repeat Modified Barium Swallow: TBD Need for Skilled Speech Therapy Services: Yes Comment: -Train the patient in use of strategies to decrease risk for aspiration and reflux aspiration. -Ongoing assessment of diet tolerance of recommended textures. -Train the patient in oropharyngeal exercise program (Effortful, Margie, Eric, Shaker). Recommended Referrals: GI Consult (Pt has appointment w/ Dr. Domínguez 06/16/24) and ENT Consult (Sensation of lump in throat w/ family history of throat cancer) Education Completed: 1. Described result of evaluation., 2. Pt understands evaluation & agrees with goals and treatment plan. and 4. Family/caregivers understand evaluation & agree w/ goals & tx plan. Status Active ST Patient: Active Contact Information [facility] Speech Therapy:: Eulalia Sinha M.A. CCC-DEALER DEVELOPMENT MANAGER? Speech-Language Pathologist?? [facility] [address] [place] [address]? [email or web address]?? [phone]
== END | disposition home or self-care (01) ==
PROVIDERS: PCP Internal Medicine; Referring Provider Internal Medicine; Visit Provider Internal Medicine
DX: R09.A2 Foreign body sensation, throat (principal)
CPT/HCPCS: 74230; 92611

== ENCOUNTER 2024-06-27 05:41 | Day surgery (SDC) | payer BC, SELFPAY ==
[2024-06-27] VITALS (8 sets, daily range): BP systolic 110–129; BP diastolic 64–95; PULSE 70–78; RESP 16–18; TEMP 36.3–36.7; O2SAT 93–96; BMI 24.5
[2024-06-27] MEDS: Lactated Ringers 1,000 ML 15 ML IV (06:27)
[2024-06-27 06:47] LABS: Bedside Glucose 145 mg/dL (74-106)
--- NOTE | 2024-06-27 07:00 | PRE.ANES_ITS ---
ASA Classification* ASA Classification ASA Classification: 2 Assessment & Plan Anesthesia* Anesthesia Assessment Anesthesia Assessment: Discussed sedation and/or anesthesia options, risks, benefits, and alternatives with patient/parents/legal guardian/POA. Questions invited. The patient/parents/legal guardian/POA seems to understand and agrees to proceed with anesthesia plan. Reviewed the physical assessment, medical history, allergy history and patient home medications list prior to surgery/procedure/anesthetic and documented any changes. Performed airway and anesthesia risk assessments. Anesthesia Type Anesthesia Type: MAC Anesthesia Focused Assessment* Temperature: 97.6 F Pulse Rate: 78 Blood Pressure: 129/77 Respiratory Rate: 16 Pulse Ox: 94 Airway Assessment Mouth opens: >3 cm Mallampati Score: II Focused Labs Anesthesia Preop lab: CBC WBC 4.5 K/mm3 (4.4-11.0) 04/21/24 12:05 RBC 4.69 M/mm3 (4.6-6.2) 04/21/24 12:05 Hgb 13.4 g/dL (13.0-16.5) 04/21/24 12:05 Hct 42.6 % (40-54) 04/21/24 12:05 Plt Count 352 K/mm3 (150-450) 04/21/24 12:05 CHEMISTRY Potassium 5.1 mmol/L (3.5-5.1) 04/21/24 12:05 Sodium 141 mmol/L (136-145) 04/21/24 12:05 BUN 13 mg/dL (7-18) 04/21/24 12:05 Creatinine 0.76 mg/dL (0.70-1.30) 04/21/24 12:05 Glucose 115 mg/dL (74-106) H 04/21/24 12:05 POC Glucose 145 mg/dL (74-106) H 06/27/24 06:18 TSH 1.18 uIU/mL (0.358-3.74) 01/16/23 14:42 COAG PT 12.7 SECONDS (11.7-14.9) 07/06/23 16:08 Pre-Assessment Diagnosis/Proposed Procedure Planned Operative Procedure(s): EGD Anesthesia History Anesthesia History - agency sales representative: Anesthesia History - agency sales representative Hx Hospitalization No 06/23/24 14:43 Any Problems With Anesthesia No 06/23/24 14:43 Cholinesterase deficiency No 06/23/24 14:43 You/Your Family Experience No 06/23/24 14:43 fever (hyperthermia) with Relationship Recent Exposure to Contagious No 06/27/24 06:20 Disease Does patient have nerve No 06/23/24 14:43 stimulator Patient instructed to have device shut off --Does patient have Pacemaker No 06/27/24 06:20 or ICD? When Was Last Pacemaker Check QUESTION #4 FULL TEXT: You/Your Family Experience fever (hyperthermia) with Anesthesia Last Oral Intake Last Oral intake: Last Oral Intake NPO since 00:00 06/27/24 06:20 Meds taken in AM with sips of water? Meds patient instructed to take am of surgery PONV PONV - agency sales representative: PONV - agency sales representative Female No 06/23/24 14:43 HX of Motion Sickness No 06/23/24 14:43 HX of N/V After Surgery No 06/23/24 14:43 Non-Smoker No 06/23/24 14:43 Duration of Surgery greater No 06/23/24 14:43 than 60 minutes Number of Risk Factors PONV Score Height & Weight Height & Weight: Anesthesia: Height & Weight Height 5 ft 8 in 06/27/24 06:20 Weight: 73.028 kg 06/27/24 06:20 Body Mass Index (BMI) 24.5 06/27/24 06:20 Respiratory Assessment Respiratory Assessment - agency sales representative: Respiratory Tract Infection Hx - agency sales representative Hx Respiratory Tract Infection No 06/23/24 14:43 STOP Sleep Apnea STOP Sleep Apnea - agency sales representative: STOP Sleep Apnea - agency sales representative Hx Hypertension Yes: CONTROLLED WITH MED 06/23/24 14:43 Hx Sleep Apnea No 06/23/24 14:43 CPAP BIPAP Do you snore loudly (louder No 06/23/24 14:43 than talking or can be heard Do you often feel tired/ Yes 06/23/24 14:43 fatigued/ sleepy during daytime? Has anyone observed you stop No 06/23/24 14:43 breathing during sleep? STOP Results Positive 06/23/24 14:43 QUESTION #5 FULL TEXT : Do you snore loudly (louder than talking or can be heard through closed doors)? Tobacco Use History Tobacco Use History - agency sales representative: Tobacco Use History - agency sales representative Tobacco Use Smoking Status Current every day smoker 06/23/24 14:43 Hx Tobacco Use Yes 06/23/24 14:43 Years Smoking Packs Smoked per Day Smoking Cessation Date was within the last 15 years Hx Smoking Cessation Date Hx Smoking Cessation Counseling Hematologic Medial History Hematologic Hx - agency sales representative: Hematologic Medical Hx - bearing ring assembler Hx of Blood Transfusion No 06/23/24 14:43 Hx of Transfusion in last 3 No 06/23/24 14:43 Months Date of Last Transfusion (if within last 3 months) Ever experience any problems No 06/23/24 14:43 with transfusion(s)? Specify any problems Hx of Preganancy in last 3 N/A 06/23/24 14:43 Months Nurse Filling Out Transfusion DSCHRIBER 06/23/24 14:43 & Questions: Date: 06/23/24 06/23/24 14:43 Time: 14:44 06/23/24 14:43 Patient unable to answer at this time (ie. confused, unrespo /Reproduction History /Reproductive History - agency sales representative: /Reproductive Hx- agency sales representative Hx Now No 06/23/24 14:43 Gestational Age (in weeks): EDC: Hx Hx Para Hx Section SAB No 06/23/24 14:43 Active Medications Active Medications: Current Medications Generic Name Dose Route Start Last Admin Trade Name Freq PRN Reason Stop Dose Admin Lactated Ringer's 1,000 mls @ 15 mls/hr 06/27/24 06:15 06/27/24 06:27 IV 15 mls/hr .Q48H SHANIQUA Administration PFSH Medical History Wears glasses Redness of skin Insulin dependent diabetes mellitus Celiac disease Easy bruising Narcolepsy Dietary restriction Difficulty swallowing Smoker Leg cramps History of pain when walking History of edema Hypertension Presence of insulin pump Depressive disorder due to another medical condition with depressive features Charcot foot due to diabetes mellitus Diabetic polyneuropathy associated with type 1 diabetes mellitus Erectile dysfunction Celiac disease Essential and other specified forms of tremor Colon polyps Insomnia Arthritis H. pylori infection Fibromyalgia High cholesterol Depression Narcolepsy Type 1 diabetes Home Medications ?Medication ?Instructions ?Recorded ?Last Taken ?Type aspirin 81 mg tablet,delayed 81 mg PO DAILY 12/08/22 06/20/24 History release (Adult Aspirin Regimen) cbd oil 500 ml sublingual 2XD PRN pain 01/04/23 Unknown History (scale score 1-3) glucagon 3 mg/actuation nasal 3 mg intranasal ONCE PRN 02/27/23 Unknown History spray (Baqsimi) hypoglycemia insulin pump cartridge,automated #1 ea 04/13/23 Unknown Rx dose,BT with controller subcutaneous (Omnipod 5 G6 Intro Kit (Gen 5) subcutaneous cartridge with controller) KVLA-SDMA-AVTU-CLON-LIDO topical TID PRN FOOT PAIN 04/17/23 Unknown History sildenafil (pulm.hypertension) 20 20 mg PO DAILY PRN ED 04/17/23 Unknown History mg tablet blood sugar diagnostic (Accu-Chek #100 ea 08/16/23 Unknown Rx Guide test strips) lancets (Accu-Chek Fastclix Lancet #102 ea 08/16/23 Unknown Rx Drum) budesonide 3 mg 6 mg (2 x 3 mg) PO DAILY #60 ea 04/21/24 Unknown Rx capsule,delayed,extended release pravastatin 20 mg tablet 20 mg PO QHS #90 tabs 04/21/24 Unknown Rx pregabalin 100 mg capsule (Lyrica) 200 mg PO TID 04/21/24 Unknown History Fiasp U-100 Insulin 100 unit/mL 50 unit subcut DAILY #50 mL 05/09/24 Unknown Rx subcutaneous solution (insulin aspart (niacinamide)) propranolol 10 mg tablet 10 mg PO BID #60 tabs 05/13/24 06/26/24 21:00 Rx albuterol sulfate 90 mcg/actuation 2 inh inhalation Q6H PRN shortness 06/23/24 Unknown History breath activated powder of breath or wheezing inhaler,sensor amitriptyline 25 mg tablet 25 mg PO QHS #30 tabs 06/23/24 Unknown Rx coenzyme Q10 100 mg capsule 100 mg PO DAILY 06/23/24 Unknown History (CoQ-10) lisinopril 2.5 mg tablet 2.5 mg PO QHS 06/23/24 Unknown History omega-3 fatty acids 500 mg PO DAILY 06/23/24 Unknown History sertraline 50 mg tablet 50 mg PO QHS 06/23/24 Unknown History Allergy/AdvReac Type Severity Reaction Status Date / Time duloxetine (From Cymbalta) AdvReac Mild Other Verified 06/27/24 06:19 Family History Sister Breast cancer Mother Colon cancer High cholesterol CVA (cerebral vascular accident) Cancer non-hodgkins lymphoma Grandmother Diabetes CVA (cerebral vascular accident) Brother CVA (cerebral vascular accident) Father Cancer lung cancer Son Essential tremor Sister Essential tremor Surgical History History of cholecystectomy History of esophagogastroduodenoscopy (EGD) Abnormal colonoscopy H/O vasectomy History of appendectomy Social History household members: spouse current occupational status: unemployed current occupation: waiting on disability Smoking Status: Current every day smoker tobacco type: cigarettes and cigars Electronic Cigarette Use: not used alcohol intake: current alcohol intake frequency: holidays/special occasions only substance use type: does not use what type of physical activity do you participate in: none do you feel safe at home: Yes Review of Systems (Anesthesia) ROS Narrative System reviewed and no additional complaints, except as documented.
--- NOTE | 2024-06-27 07:00 | EGD_PTH ---
PATIENT: CIARRA KENNEDY LOC: EN U#:[id number] AGE/SX: 54/M ROOM: RE06/27/[address]: Dr. Mp Domínguez DO : 1970 BED: DIS: 06/27/2024 SPEC #: [id number] RECD: 06/27/24 10:59 STATUS: AIDEN REQ #: [id number] ALISSA: 06/27/24 07:[address]: Mp Domínguez DEPT: SURGICAL PATHOLOGY RECD BY: Faith Sam ENTERED: 06/27/24 11:51 SP TYPE: EGD BIOPSY OT DR: Dr. Chio Dempsey MD Tissues: Esophagus, NOS Procedures: Surgery Specimen Level IV HEADER OPERATION: EGD with biopsy PRE-OP DIAGNOSIS: Dysphagia TISSUE SUBMITTED: Random esophagus biopsy MICROSCOPIC DIAGNOSIS Esophagus, random biopsy: Fragments of benign squamous epithelium with focal minimal chronic inflammation. See comment. KANDIS/mr 07/01/2024 COMMENT Increased number of eosinophils consistent with eosinophilic esophagitis are not seen. Correlation with clinical, endoscopic findings and appropriate follow up are necessary. MICROSCOPIC DESCRIPTION Slides are reviewed. GROSS DESCRIPTION Received in fixative is one container labeled with the patient's name and designated Random esophagus biopsy. The specimen consists of multiple irregular fragments of light mondragon soft tissue that in aggregate measure 1.5 x 0.5 x 0.1 cm. The specimen is totally submitted in one cassette. KANDISMark 06/27/2024 TC:3 CPT:10504
--- NOTE | 2024-06-27 07:02 | PCM.HP.BLA ---
History and Physical Date of Admission: 06/27/24 CIARRA KENNEDY, is a 54 M who presents to the office today for PMH DM 1 (Dr. Sky); narcolepsy; depression, ADD; HLD, osteoarthritis; insomnia; fibromyalgia; erectile dysfunction PCP OV 3..23 to establish care. Notes being overall stable with ability to gain 20lbs with better regulated BS/insulin management. Smokes 1.5 cigars every 1-2 days. Reports history of celiac disease for which he would like to establish with GI, has been trying to maintain gluten free diet. ? Biochemical 2.10.23 A1c H14 ? Biochemical 5.2.23 A1c H11 *BGI established 07.06.23 previously diagnosed with celiac disease, follow strict gluten free diet; high risk colon cancer as mother diagnosed at young age. ? Biochemical coag, CMP, LFT, CRP, lipase, TTG without pertinent abnormality ? ESR H26, endomysial ab + Contact, VM 07.23.23 with conflicting results and need for HLA for determination of celiac disease. Capsule 09.06.23 early small bowel changes consistent with celiac disease; visualization obscured by presence of bile throughout small bowel; small ulcerations likely celiac versus bile induced. Contact, 09.13.23 with results. Start budesonide ? Stool fat, elastase WNL ? 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 States the Budesonide is helpful. Is not having any abdominal pain, heartburn, cramping or bloating. BM are normal 1-2x a day. OV 8.19.24 pt reports that he is having nausea a few times a week after eating due to his sugar levels; states that his insulin orders have changed recently. Pt reports that he takes OTC Nexium every day to help with his HB. Pt reports that he does his best to eat on a gluten free diet. Reports that he is having trouble swallowing both foods and liquids occasional and feels like there is a lump in his throat. ROS Const Constitutional: Positive for fatigue, frequent falls and weakness; No fever(s) or weight change ENT ENT: Positive for difficulty swallowing Cardio Cardiology: Positive for leg pain with exertion Gastro GI: Positive for heartburn, difficulty swallowing and nausea/dyspepsia; No abdominal pain, belching, bloating, change in bowel habits, change in stool character, coffee ground emesis, constipation, cramping, diarrhea, feeling full early, excessive flatus, incontinent of stools, Vomiting blood/hematemesis, Blood in stool, loose stools, Black,tarry stools, pain with swallowing, vomiting or other Musc Musculoskeletal: Positive for abnormal gait, joint pain, back pain, joint swelling, muscle cramps, muscle weakness, numbness, stiffness, tingling, restless legs, leg pain at night and leg pain with exertion Skin Skin: No yellowing of the eye or itchy eyes Neuro Neurology: Positive for abnormal gait, weakness, frequent falls, numbness, tingling and restless legs Psych Psychiatric: No anxiety and Positive for depression Endo Endocrine: Positive for fatigue; No weight change Aller/Imm Allergy/Immunologic: No itchy eyes Balaji/Lymp Hematologic/Lymphatic: No easy bleeding or easy bruising Exam Const General: cooperative, healthy appearing, comfortable, no acute distress, well developed, not cushingoid and frail appearing Nutritional Appearance: well nourished and thin Orientation: alert, awake and oriented x3 HENMT Head: normal to inspection Ears: hearing grossly normal bilaterally Nose: external nose normal Mouth: oral mucosae normal Eyes General: appearance normal, both eyes and all related structures Alignment and Position: alignment normal Periorbital: periorbital findings normal Eyelids: eyelids normal Conjunctivae: conjunctivae normal Neck Neck: normal visual inspection Neck mass: No Chest Chest palpation & inspection: normal inspection of the chest Resp Effort & Inspection: normal respiratory effort, able to speak in complete sentences, symmetric chest movement, no audible wheezes and no cough Cardio Rate: regular rate Rhythm: regular rhythm GI Inspection: normal to inspection Skin General: no rashes or lesions noted Neuro General: patient alert, patient awake and patient oriented x3 Cranial Nerves: CN's II-XI intact bilaterally Cognition: normal cognition Speech: speech normal Gait: gait assisted Method: walker Motor: muscle tone normal throughout Psych Appearance: grossly normal Mental Status: mental status grossly normal Mood: congruent mood Affect: normal affect Speech and Movement: speech and movement normal Attitude: cooperative Thought Process: normal Thought Content: normal Judgment: judgment good Assessment and Plan Assessment and Plan (1) Celiac disease: Status: Chronic Plan: 54-year-old woman with poorly controlled diabetes presented for the evaluation of with weight loss and watery diarrhoea not responding to diet change.? He underwent upper and lower endoscopy and was diagnosed with celiac disease and microscopic colitis. His muscle strength and weakness is getting progressively worse. He was told that a lot of his symptoms were secondary to poorly controlled diabetes and neuropathy. He has been undergoing water therapy for his progressive muscle weakness but it is not improved his overall life. He still is having a lot of trouble controlling his diabetes and was told by his physical therapist that they did not think his progressive weakness was secondary to poorly controlled diabetes mellitus. Celiac antibodies were normal (<1 kU/L tissue transglutaminase IgA, <1 kU/L deamidated gliadin peptide IgG, normal levels of IgA, IgG, and IgM). There is a possibility that he has autoimmune enteritis. That would correlate with his progressive weight loss and possibly refractory celiac disease. 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 He has been on budesonide therapy and ask been doing very well. He has gained weight and went from a BMI of 18 to a BMI of 21. He still continues to drink a lot of Mountain Dew but his hemoglobin A1c is down to 7.3. He still suffers from a lot of neuropathy and was diagnosed with retinopathy. He underwent intraocular injections which has improved his vision. His current problems are esophageal dysphagia currently with solid foods. He also complains of some odynophagia without chest pain or shortness of breath. Recommendations: -Continue budesonide at current dosing -Esophageal manometry as he underwent a swallowing study with speech therapy and showed elements of esophageal dysmotility and possible achalasia along with regurgitation -We will perform an EGD as he has not had one in about 3 years to evaluate for mucosal disease such as esophageal stricture, esophageal web, esophageal ring and eosinophilic esophagitis. -Patient and his are okay with this plan. I have examined the patient and the H&P has been reviewed. There are no clinical changes since date of exam.
--- NOTE | 2024-06-27 07:18 | PCM.POST.ANE ---
Anesthesia: Postop Eval I Current Vital Signs Temperature: 97.4 F Pulse Rate: 71 Blood Pressure: 110/77 Respiratory Rate: 18 Pulse Ox: 94 Assessment Airway patent: Yes Spontaneous unlabored respirations: Yes nausea: No Vomiting: No Anesthesia Complication: No Fluid Hydration Crystalloid volume administer (ml): 200 Total IV fluid infused: 200 Progress Note Anesthesia document: Postop Eval 1 completed: Yes
--- NOTE | 2024-06-27 07:31 | OP.CCLET_ITS ---
06/27/2024 Chio Dempsey Md Re : Upper GI endoscopy procedure for Klever Panchal Dear Ke This procedure was performed on Thursday, June 27, 2024. My impressions and recommendations are as follows: Impressions : - Esophageal mucosal changes secondary to eosinophilic esophagitis. - A large amount of a phytobezoar in the stomach. - Retained food in the duodenum. - Biopsies were taken with a cold forceps for evaluation of eosinophilic esophagitis. Recommendations : - Discharge patient to home (ambulatory). - Gastroparesis diet. - Continue present medications. - Gastric emptying study - Await pathology results. - 64 ounces of diet cola per day - Proteolytic enzymes 3 times a day - Low fiber diet until bezoars resolved - Repeat upper endoscopy in 2 to 3 months My findings are described in the full procedure note, which is enclosed. If I can be of further assistance, please feel free to contact me at . Sincerely, Mp Domínguez, 06/27/2024 7:30:51 AM This report has been signed electronically.
--- NOTE | 2024-06-27 07:31 | OP.EGD_ITS ---
Patient Name: Klever Panchal Procedure Date: 06/27/2024 7:02 AM Date of : 1970 Age: 54 Procedure: Upper GI endoscopy Indications: Epigastric abdominal pain, Dyspepsia, Indigestion Providers: Mp Domínguez DO Referring MD: Chio Dempsey Md Medicines: Monitored Anesthesia Care Patient Profile: This is a 54 year old male. Refer to note in patient chart for documentation of history and physical. Patient has symptoms of chronic epigastric abdominal pain, chronic dyspepsia and chronic nausea. Complications: No immediate complications. Procedure: Pre-Anesthesia Assessment: - Prior to the procedure, a History and Physical was performed, and patient medications and allergies were reviewed. The patient is competent. The risks and benefits of the procedure and the sedation options and risks were discussed with the patient. All questions were answered and informed consent was obtained. Patient identification and proposed procedure were verified by the physician in the pre-procedure area. Mental Status Examination: alert and oriented. Airway Examination: normal oropharyngeal airway and neck mobility. Respiratory Examination: clear to auscultation. CV Examination: normal. Prophylactic Antibiotics: The patient does not require prophylactic antibiotics. Prior Anticoagulants: The patient has taken no anticoagulant or antiplatelet agents except for NSAID medication. ASA Grade Assessment: II - A patient with mild systemic disease. After reviewing the risks and benefits, the patient was deemed in satisfactory condition to undergo the procedure. The anesthesia plan was to use monitored anesthesia care (MAC). Immediately prior to administration of medications, the patient was re-assessed for adequacy to receive sedatives. The heart rate, respiratory rate, oxygen saturations, blood pressure, adequacy of pulmonary ventilation, and response to care were monitored throughout the procedure. The physical status of the patient was re-assessed after the procedure. After obtaining informed consent, the endoscope was passed under direct vision. Throughout the procedure, the patient's blood pressure, pulse, and oxygen saturations were monitored continuously. The gastroscope was introduced through the mouth, and advanced to the second part of duodenum. The upper GI endoscopy was accomplished without difficulty. The patient tolerated the procedure well. Scope In: 7:14:00 AM Scope Out: 7:16:39 AM Total Procedure Duration Time 0 hours 2 minutes 39 seconds Findings: Mucosal changes including longitudinal furrows and small-caliber esophagus were found in the entire esophagus. Biopsies were obtained from the proximal and distal esophagus with cold forceps for histology of suspected eosinophilic esophagitis. Verification of patient identification for the specimen was done. Estimated blood loss was minimal. A large amount of a phytobezoar was found in the entire examined stomach. Food (residue) was found in the duodenal bulb. Impression: - Esophageal mucosal changes secondary to eosinophilic esophagitis. - A large amount of a phytobezoar in the stomach. - Retained food in the duodenum. - Biopsies were taken with a cold forceps for evaluation of eosinophilic esophagitis. Recommendation: - Discharge patient to home (ambulatory). - Gastroparesis diet. - Continue present medications. - Gastric emptying study - Await pathology results. - 64 ounces of diet cola per day - Proteolytic enzymes 3 times a day - Low fiber diet until bezoars resolved - Repeat upper endoscopy in 2 to 3 months Mp Domínguez DO 06/27/2024 7:30:51 AM This report has been signed electronically. Number of Addenda: 0 Note Initiated On: 06/27/2024 7:02 AM
--- NOTE | 2024-06-27 08:29 | POSTOPAN2_ITS ---
Anesthesia Postop Eval I Sum Postop Eval Completion status Anesthesia document: Postop Eval 1 completed: Yes Anesthesia Postop Eval I Summary Anesthesia Postop Eval I Summary: Anesthesia Postop Eval I: Assessment Summary Airway patent Yes 06/27/24 07:22 COMPUTING SYSTEMS [email or web address] Spontaneous unlabored Yes 06/27/24 07:22 COMPUTING SYSTEMS MECHANIC.CSIR respirations Mental status nausea No 06/27/24 07:22 COMPUTING SYSTEMS MECHANIC.CSIR Vomiting No 06/27/24 07:22 COMPUTING SYSTEMS [email or web address].CSIR Anesthesia Postop Eval I: Fluid Summary Crystalloid volume administer 200 06/27/24 07:22 COMPUTING SYSTEMS MECHANIC.CSIR (ml) Colloids volume administered ( ml) Blood Product volume administered (ml) Total IV fluid infused 200 06/27/24 07:22 COMPUTING SYSTEMS MECHANIC.CSIR Anesthesia Postop Eval I: Summary Notes Anesthesia Complication No 06/27/24 07:22 COMPUTING SYSTEMS [email or web address].CSIR Anesthesia Complication Comment: Post-operative progress note Anesthesia: Postop Eval II Evaluation Mental status: Awake and Calm Pain Level: 0 nausea: No Vomiting: No Complications Anesthesia Complication: No
--- NOTE | 2024-06-27 08:29 | PCM.POSTANE2 ---
Anesthesia Postop Eval I Sum Postop Eval Completion status Anesthesia document: Postop Eval 1 completed: Yes Anesthesia Postop Eval I Summary Anesthesia Postop Eval I Summary: Anesthesia Postop Eval I: Assessment Summary Airway patent Yes 06/27/24 07:22 GROUNDS MAINTENANCE MANAGER.CSIR Spontaneous unlabored Yes 06/27/24 07:22 GROUNDS MAINTENANCE MANAGER.CSIR respirations Mental status nausea No 06/27/24 07:22 GROUNDS MAINTENANCE MANAGER.CSIR Vomiting No 06/27/24 07:22 GROUNDS MAINTENANCE MANAGER.CSIR Anesthesia Postop Eval I: Fluid Summary Crystalloid volume administer 200 06/27/24 07:22 GROUNDS MAINTENANCE MANAGER.CSIR (ml) Colloids volume administered ( ml) Blood Product volume administered (ml) Total IV fluid infused 200 06/27/24 07:22 GROUNDS MAINTENANCE MANAGER.CSIR Anesthesia Postop Eval I: Summary Notes Anesthesia Complication No 06/27/24 07:22 GROUNDS MAINTENANCE MANAGER.CSIR Anesthesia Complication Comment: Post-operative progress note Anesthesia: Postop Eval II Evaluation Mental status: Awake and Calm Pain Level: 0 nausea: No Vomiting: No Complications Anesthesia Complication: No
== END 2024-06-27 08:09 | disposition home or self-care (01) ==
LOC: EN 05:42 → AC 05:43
PROVIDERS: PCP Internal Medicine; Referring Provider Internal Medicine; Visit Provider Internal Medicine Gastroenterology
PROC: 0DJ08ZZ Inspection of Upper Intestinal Tract, Via Natural or Artificial Opening Endoscopic (ICD-10-PCS; CPT 43235; principal; 2024-06-27 06:55)
DX: K20.90 Esophagitis, unspecified without bleeding (principal); E10.42 Type 1 diabetes mellitus with diabetic polyneuropathy; R10.13 Epigastric pain; K90.0 Celiac disease; T18.2XXA Foreign body in stomach, initial encounter; Z79.82 Long term (current) use of aspirin; Z79.899 Other long term (current) drug therapy; E78.00 Pure hypercholesterolemia, unspecified; Z96.41 Presence of insulin pump (external) (internal); I10 Essential (primary) hypertension; F17.200 Nicotine dependence, unspecified, uncomplicated; Z90.49 Acquired absence of other specified parts of digestive tract; X58.XXXA Exposure to other specified factors, initial encounter
CPT/HCPCS: 43239; 82962; 88305; J7120; J2405

== ENCOUNTER 2024-07-11 07:47 | Day surgery (SDC) | payer BC, SELFPAY ==
[2024-07-11] MEDS: Lidocaine Jelly 2% 20 ML Syringe (URO-JET) 1 APPLIC (08:07)
[2024-07-11 08:11] VITALS: PULSE 80; RESP 16; TEMP 36.5; O2SAT 97
== END 2024-07-11 08:39 | disposition home or self-care (01) ==
PROVIDERS: PCP Internal Medicine; Referring Provider Internal Medicine Gastroenterology; Visit Provider Internal Medicine Gastroenterology
PROC: F00ZJWZ Instrumental Swallowing and Oral Function Assessment using Swallowing Equipment (ICD-10-PCS; CPT 43235; principal; 2024-07-11 07:55)
DX: K21.9 Gastro-esophageal reflux disease without esophagitis (principal)
CPT/HCPCS: 91010

== ENCOUNTER → 2024-09-29 | Outpatient (CLI) | payer OTHER, SELFPAY ==
--- NOTE | 2024-09-29 12:06 | NM_ITS ---
CLINICAL: 54-year-old diabetic male with history of clinical gastroparesis and dysphagia. SEMI-SOLID PHASE 99m Tc SULFUR COLLOID GASTRIC EMPTYING STUDY COMPARISON: None available FINDINGS: The patient was administered 1.1 mCi of 99m Tc sulfur colloid mixed with oatmeal and consumed per os. Image acquisitions in the anterior-posterior projections were obtained for 60 minutes. There is prompt visualization of the stomach. There is no gastroesophageal reflux identified. First order kinetics are maintained throughout the duration of the acquisitions. The T ? linear fit was extrapolated to be 94.93 minutes, (Normal: 12-56 minutes). NM/Gastric Emptying Study IMPRESSION: 1. ABNORMAL 99m Tc sulfur colloid semi-solid phase (oatmeal) gastric emptying imaging examination. A. There is delayed semi-solid phase gastric emptying compared to normal controls with maintained first order kinetics throughout all components of the examination. (Jacob et al, J Nucl Med Tech 38: 186, 2010). Electronically Signed: Demetrio Gutierrez DO at 8:57 EST ,
== END | disposition home or self-care (01) ==
PROVIDERS: PCP Internal Medicine; Referring Provider Internal Medicine Gastroenterology; Visit Provider Internal Medicine Gastroenterology
DX: K31.84 Gastroparesis (principal)
CPT/HCPCS: 78264; A9541

== ENCOUNTER → 2024-10-08 | Outpatient (CLI) | payer OTHER, SELFPAY ==
[2024-10-20 15:07] LABS: ACHR Recep AB, Blocking 25 % (0-25)
== END | disposition home or self-care (01) ==
LOC: BIMLAB 15:47
PROVIDERS: PCP Internal Medicine; Referring Provider Internal Medicine; Visit Provider Internal Medicine
DX: R09.A2 Foreign body sensation, throat (principal)
CPT/HCPCS: 36415; 83519

== ENCOUNTER → 2025-01-21 | Outpatient (CLI) | payer OTHER, SELFPAY ==
--- NOTE | 2025-01-21 09:49 | NM_ITS ---
EXAM: Nuclear medicine solid phase gastric emptying study. CLINICAL HISTORY: Gastroparesis. COMPARISON: Prior semi solid phase gastric emptying examination of 09/29/2024. TECHNIQUE: Nuclear medicine solid phase gastric emptying study. Dose: 1 mCi technetium 99 M sulfur colloid, orally, combined with solid food. FINDINGS: Linear fit gastric emptying half-time of 113.23 minutes. Gastric emptying at 60 minutes of 13%, at 116 minutes of 57%, and a 226 minutes of 99%. NORMAL VALUES: The upper limits of normal for gastric retention is as follows (a greater value suggests abnormally delayed gastric emptying): 1 hour, 90% 2 hours, 60% 3 hours, 30% 4 hours, 10% The lower limits for gastric retention (a lower value suggests abnormally rapid gastric emptying): 0.5 hours, 70% 1 hour, 30% Delayed gastric retention is defined as: 90% retained at 1 hour, 60% at 2 hours. 30% at 3 hours. 10% at 4 hours. Early dumping begins concurrently within 15 to 30 minutes from ingestion of a meal. Late dumping happens one to three hours after eating. STANDARD REFERENCE DATA: At 60 minutes, the lower limit of normal is 18%, with mean emptying of 54%, upper limit of 70% (too rapid). At 90 minutes, the lower limit of normal is 46%, with mean emptying of 75%. At 120 minutes, The upper limit of normal is 90% (too rapid -> dumping syndrome). At 240 minutes, the lower limit of normal is 90-92%; less than 90% is delayed. NM/Gastric Emptying Study - 4 HR IMPRESSION: Normal solid phase gastric emptying. Reading Location: [id number]
== END | disposition home or self-care (01) ==
LOC: NM 09:43
PROVIDERS: PCP Internal Medicine; Referring Provider Internal Medicine Gastroenterology; Visit Provider Internal Medicine Gastroenterology
DX: K31.84 Gastroparesis (principal)
CPT/HCPCS: 78264; A9541